=== PATIENT | male | born 1965 | race Caucasian/White ===

== ENCOUNTER → 2017-01-16 | Outpatient (CLI) | payer OTHER ==
[~2017-01-16] MED LIST: ASPEC81 PO; EZET10TA63 PO; GLC500 PO; LISI-729 PO; NTRGSL/4 UT; PRLSR20 PO; pravastatin PO
[2017-01-16 18:31] LABS: % FREE PSA 21.9 %; FREE PSA 1.37 ng/ml; PROSTATE SPECIFIC ANTIGEN 6.27 ng/ml (0.000-4.000)
== END | disposition home or self-care (01) ==
LOC: C.LAB1850 16:51
PROVIDERS: ATTEND Urology
DX: R97.20 Elevated prostate specific antigen [PSA] (principal)